=== PATIENT | female | born 1990 | race Caucasian/White ===

== ENCOUNTER 2021-06-12 03:56 | Emergency (ER) | payer OTHER, MEDICAID ==
[~2021-06-12] VITALS: Ht 170.2 cm; Wt 95.5 kg
[2021-06-12 04:07] VITALS: BP 128/89
[2021-06-12] MEDS ORDERED: IBUP-1984 PO (04:49)
== END 2021-06-12 05:34 | disposition home or self-care (01) ==
LOC: ER 03:57
DX: M79.674 Pain in right toe(s) (principal); W18.40XA Slipping, tripping and stumbling without falling, unspecified, initial encounter; Y93.89 Activity, other specified; Y92.89 Other specified places as the place of occurrence of the external cause; Y99.8 Other external cause status; Z88.2 Allergy status to sulfonamides; Z79.899 Other long term (current) drug therapy
CPT/HCPCS: 73630; 99283